=== PATIENT | female | born 1945 | race Hispanic/Latino ===

== ENCOUNTER → 2019-12-30 | Outpatient (CLI) | payer OTHER, MEDICARE ==
[~2019-12-30] MED LIST: ACET-2113 PO; AEC81 PO; ASCO60LO10 PO; CALC-322 PO; GINK120C PO; OMEG1CAP6 PO
== END | disposition home or self-care (01) ==
LOC: SHCH 12:30
PROVIDERS: ATTEND Internal Medicine Cardiovascular Disease
DX: I10 Essential (primary) hypertension (principal); E78.5 Hyperlipidemia, unspecified
CPT/HCPCS: 93306; 93356

== ENCOUNTER → 2019-12-30 | Outpatient (CLI) | payer OTHER | END | disposition home or self-care (01) | LOC: OIH 12:28 | PROVIDERS: ATTEND Internal Medicine Cardiovascular Disease | DX: Z13.6 Encounter for screening for cardiovascular disorders (principal) | CPT/HCPCS: 75571 ==

== ENCOUNTER 2020-01-03 12:59 | Inpatient (IN) | payer OTHER, MEDICARE ==
[~2020-01-03] VITALS: Ht 167.6 cm; Wt 101.2 kg
[2020-01-03 13:16] LABS: BASOPHILS % (AUTO) 0.5 % (0.0-5.0); EOSINOPHILS % (AUTO) 1.1 % (0.0-8.0); HEMATOCRIT 42.8 % (36-48); LYMPHOCYTES % (AUTO) 20.6 % (21.0-51.0); MEAN CORPUSCULAR HEMOGLOBIN 28.8 pg (27.0-33.0); MEAN CORPUSCULAR VOLUME 89.9 fL (79-99); NEUTROPHILS % (AUTO) 69.7 % (40.0-77.0); PLATELET COUNT (AUTO) 240 K/uL (130-400); RED BLOOD CELL COUNT(AUTO) 4.76 MIL/uL (4.00-5.50); RED CELL DISTRIBUTION WIDTH 12.5 % (11.0-15.5); WHITE BLOOD COUNT (AUTO) 7.3 K/uL (4.8-10.8)
[2020-01-03 13:27] LABS: ALBUMIN 3.9 g/dL (3.5-5.0); BILIRUBIN,TOTAL 0.6 mg/dL (0.2-1.0); CREATININE 0.6 mg/dL (0.5-1.5); POTASSIUM 4.3 mmol/L (3.5-5.1); TOTAL PROTEIN, SERUM 7.8 g/dL (6.0-8.3)
[2020-01-03] MEDS ORDERED: SODIUM CHLORIDE 0.9% 1000ML 1,000 ML IV ONE (13:27)
[2020-01-03 13:29] LABS: INR 1.02 (0.85-1.15); PARTIAL THROMBOPLASTIN TIME 29.7 SEC (26.3-35.5)
[2020-01-03 14:01] LABS: APPEARANCE,URINE Clear (CLEAR); BILIRUBIN,URINE Negative (NEGATIVE); COLOR,URINE Yellow (YELLOW); GLUCOSE, URINE (UA) Negative (NEGATIVE); KETONES,URINE Negative (NEGATIVE); LEUKOCYTE ESTERASE ,URINE Moderate (NEGATIVE); NITRATE,URINE Negative (NEGATIVE); OCCULT BLOOD,URINE Negative (NEGATIVE); PROTEIN,URINE Negative (NEGATIVE); UROBILINOGEN,URINE 0.2 mg/dL (0.2-1.0)
[2020-01-03 14:11] LABS: BACTERIA,URINE Many /HPF (None Seen); RBC,URINE 0-1 /HPF (0-1); SQUAMOUS EPITHELIAL CELL,UR Rare /HPF (0-2)
[2020-01-03] MEDS ORDERED: CEFTRIAXONE SODIUM 1 GM ONE (14:43)
[2020-01-03] MEDS ORDERED: SODIUM CHLORIDE 0.9% 50 ML IV ONE (14:43)
[2020-01-03] MEDS ORDERED: ACETAMINOPHEN 325 MG TAB PO PRN (18:30)
[2020-01-03] MEDS ORDERED: ONDANSETRON HCL 4 MG/2 ML VIAL IV PRN (18:30)
[2020-01-03] MEDS ORDERED: NITROGLYCERIN 0.4 MG SL TAB SL PRN (18:30)
[2020-01-03] MEDS: FAMOTIDINE 20MG TAB 20 MG TAB PO SCH (21:00)
[2020-01-03] MEDS ORDERED: FAMOTIDINE/PF 20 MG/2 ML VIAL IV ONE (21:22)
[2020-01-03] MEDS ORDERED: HYDROCODONE/ACETAMINOPHEN 10/325 MG TAB ONE (22:33)
[2020-01-04 04:54] LABS: BASOPHILS % (AUTO) 0.6 % (0.0-5.0); EOSINOPHILS % (AUTO) 2.5 % (0.0-8.0); HEMATOCRIT 37.8 % (36-48); LYMPHOCYTES % (AUTO) 27.7 % (21.0-51.0); MEAN CORPUSCULAR HEMOGLOBIN 29.5 pg (27.0-33.0); MEAN CORPUSCULAR HGB CONC 32.5 g/dL (32.0-36.0); MEAN CORPUSCULAR VOLUME 90.6 fL (79-99); MONOCYTES % (AUTO) 9.2 % (3.0-13.0); NEUTROPHILS % (AUTO) 59.9 % (40.0-77.0); PLATELET COUNT (AUTO) 197 K/uL (130-400); RED BLOOD CELL COUNT(AUTO) 4.17 MIL/uL (4.00-5.50); RED CELL DISTRIBUTION WIDTH 12.6 % (11.0-15.5); WHITE BLOOD COUNT (AUTO) 6.8 K/uL (4.8-10.8)
[2020-01-04 05:07] LABS: ALBUMIN 3.1 g/dL (3.5-5.0); BILIRUBIN,TOTAL 0.5 mg/dL (0.2-1.0); CREATININE 0.6 mg/dL (0.5-1.5); POTASSIUM 4.6 mmol/L (3.5-5.1); TOTAL PROTEIN, SERUM 6.6 g/dL (6.0-8.3)
[2020-01-04] MEDS ORDERED: FAMOTIDINE 20MG TAB 20 MG TAB ONE (08:08)
[2020-01-04] MEDS: FAMOTIDINE 20MG TAB 20 MG TAB PO SCH ×2 (09:00→21:14)
[2020-01-04] MEDS: CEFTRIAXONE SODIUM 1 GM IVP SCH (09:00)
[2020-01-04] MEDS ORDERED: SODIUM CHLORIDE 0.9% 500ML 500 ML IV ONE (11:07)
[2020-01-04] MEDS: INSULIN HUMULIN R 100 UNIT/ML 3ML SQ SCH ×3 (11:30→21:00)
[2020-01-04 20:16] VITALS: BP 123/64
[2020-01-04] MEDS: LISINOPRIL 10 MG TABLET PO SCH (21:00)
[2020-01-05] VITALS (9 sets, daily range): BP systolic 99–125; BP diastolic 42–68
[2020-01-05] MEDS ORDERED: DEXTROSE 50%-WATER 50 ML DISP.SYRIN IV ONE (05:10)
[2020-01-05 05:27] LABS: BASOPHILS % (AUTO) 0.7 % (0.0-5.0); EOSINOPHILS % (AUTO) 2.6 % (0.0-8.0); HEMATOCRIT 36.9 % (36-48); LYMPHOCYTES % (AUTO) 29.3 % (21.0-51.0); MEAN CORPUSCULAR HEMOGLOBIN 28.6 pg (27.0-33.0); MEAN CORPUSCULAR HGB CONC 31.7 g/dL (32.0-36.0); MEAN CORPUSCULAR VOLUME 90.2 fL (79-99); NEUTROPHILS % (AUTO) 58.2 % (40.0-77.0); PLATELET COUNT (AUTO) 205 K/uL (130-400); RED BLOOD CELL COUNT(AUTO) 4.09 MIL/uL (4.00-5.50); RED CELL DISTRIBUTION WIDTH 12.5 % (11.0-15.5); WHITE BLOOD COUNT (AUTO) 5.9 K/uL (4.8-10.8)
[2020-01-05 05:49] LABS: BILIRUBIN,TOTAL 0.4 mg/dL (0.2-1.0); CREATININE 0.6 mg/dL (0.5-1.5); POTASSIUM 4.2 mmol/L (3.5-5.1); TOTAL PROTEIN, SERUM 6.5 g/dL (6.0-8.3)
[2020-01-05 05:50] LABS: ALBUMIN 2.9 g/dL (3.5-5.0)
[2020-01-05] MEDS: INSULIN HUMULIN R 100 UNIT/ML 3ML SQ SCH (07:04)
[2020-01-05 07:42] LABS: HEMOGLOBIN A1C 5.9 % (4.0-6.0)
[2020-01-05] MEDS: CEFTRIAXONE SODIUM 1 GM IVP SCH (08:47)
[2020-01-05] MEDS: ENOXAPARIN SODIUM 40 MG/0.4 ML SYRINGE SQ SCH (08:49)
[2020-01-05] MEDS: ASPIRIN 81MG TAB.CHEW PO SCH (08:49)
[2020-01-05] MEDS: FAMOTIDINE 20MG TAB 20 MG TAB PO SCH ×2 (08:49→21:13)
[2020-01-05] MEDS: LISINOPRIL 10 MG TABLET PO SCH ×2 (08:50→21:14)
[2020-01-05] MEDS ORDERED: ATORVASTATIN CALCIUM 20 MG TABLET PO SCH (09:00)
[2020-01-05] MEDS: POLYETHYLENE GLYCOL 3350 17 GM POWD.PACK PO SCH (17:13)
[2020-01-06 03:53] VITALS: BP 102/44
[2020-01-06 04:02] LABS: BASOPHILS % (AUTO) 0.5 % (0.0-5.0); EOSINOPHILS % (AUTO) 2.5 % (0.0-8.0); HEMATOCRIT 36.6 % (36-48); LYMPHOCYTES % (AUTO) 32.2 % (21.0-51.0); MEAN CORPUSCULAR HEMOGLOBIN 29.1 pg (27.0-33.0); MEAN CORPUSCULAR HGB CONC 32.2 g/dL (32.0-36.0); MEAN CORPUSCULAR VOLUME 90.4 fL (79-99); MONOCYTES % (AUTO) 9.3 % (3.0-13.0); NEUTROPHILS % (AUTO) 55.2 % (40.0-77.0); PLATELET COUNT (AUTO) 212 K/uL (130-400); RED BLOOD CELL COUNT(AUTO) 4.05 MIL/uL (4.00-5.50); RED CELL DISTRIBUTION WIDTH 12.5 % (11.0-15.5); WHITE BLOOD COUNT (AUTO) 6.4 K/uL (4.8-10.8)
[2020-01-06 04:18] LABS: BILIRUBIN,TOTAL 0.4 mg/dL (0.2-1.0); CREATININE 0.6 mg/dL (0.5-1.5); POTASSIUM 3.9 mmol/L (3.5-5.1); TOTAL PROTEIN, SERUM 6.5 g/dL (6.0-8.3)
[2020-01-06 07:30] VITALS: BP 124/45
[2020-01-06] MEDS: FAMOTIDINE 20MG TAB 20 MG TAB PO SCH (09:24)
[2020-01-06] MEDS: ASPIRIN 81MG TAB.CHEW PO SCH (09:24)
[2020-01-06] MEDS: LISINOPRIL 10 MG TABLET PO SCH (09:25)
[2020-01-06] MEDS: CEFTRIAXONE SODIUM 1 GM IVP SCH (09:25)
[2020-01-06] MEDS: POLYETHYLENE GLYCOL 3350 17 GM POWD.PACK PO SCH (09:25)
[2020-01-06] MEDS: ENOXAPARIN SODIUM 40 MG/0.4 ML SYRINGE SQ SCH (09:49)
[2020-01-06 11:00] VITALS: BP 95/94
[2020-01-06] MEDS ORDERED: MECLIZINE HCL 25 MG TABLET PO PRN (14:15)
[2020-01-06 16:00] VITALS: BP 149/53
== END 2020-01-06 17:25 | disposition home or self-care (01) | DRG 880 ==
LOC: EDH 12:59 → EDHIP 18:24 → 3BH 01-04 16:33
PROVIDERS: ADMIT Hospitalist; ATTEND Hospitalist
DX: F41.9 Anxiety disorder, unspecified (principal); N39.0 Urinary tract infection, site not specified; E78.5 Hyperlipidemia, unspecified; I10 Essential (primary) hypertension; R73.03 Prediabetes; E66.9 Obesity, unspecified; F32.9 Major depressive disorder, single episode, unspecified; M19.90 Unspecified osteoarthritis, unspecified site; Z83.3 Family history of diabetes mellitus; Z82.49 Family history of ischemic heart disease and other diseases of the circulatory system; Z90.49 Acquired absence of other specified parts of digestive tract; Z80.0 Family history of malignant neoplasm of digestive organs; Z80.8 Family history of malignant neoplasm of other organs or systems; Z68.36 Body mass index [BMI] 36.0-36.9, adult; T46.4X5A Adverse effect of angiotensin-converting-enzyme inhibitors, initial encounter; R42 Dizziness and giddiness
CPT/HCPCS: 36415; 70450; 70544; 70547; 70551; 71045; 80053; 81001; 82550; 82948; 83036; 83880; 84484; 85025; 85610; 85730; 87077; 87088; 87186; 93005; G0378; J0696; J1650; J2405; J3490; J7030; J7040; J7070

== ENCOUNTER → 2020-02-07 | Outpatient (CLI) | payer OTHER, MEDICARE ==
[~2020-02-07] MED LIST changes: -ACET-2113 PO; -AEC81 PO; -ASCO60LO10 PO; -CALC-322 PO; -GINK120C PO; -OMEG1CAP6 PO; +REGADENOSON 0.4 MG/5 ML PF SYG IVP SCH
== END | disposition home or self-care (01) ==
LOC: SHCH 07:41
PROVIDERS: ATTEND Internal Medicine Cardiovascular Disease
DX: I25.10 Atherosclerotic heart disease of native coronary artery without angina pectoris (principal); E78.5 Hyperlipidemia, unspecified
CPT/HCPCS: 78452; 93017; 96374; A9500 ×2; J2785

== ENCOUNTER 2020-11-16 04:13 | Observation (INO) | payer OTHER, MEDICARE ==
[~2020-11-16] VITALS: Ht 160 cm; Wt 102.9 kg
[2020-11-16] MEDS ORDERED: ONDANSETRON 4MG INJ IVP ONE (05:00)
[2020-11-16] MEDS ORDERED: MORPHINE 4 MG SYG IV ONE ×2 (05:00→08:30)
[2020-11-16] MEDS ORDERED: MORPHINE 4 MG SYG ONE (05:06)
[2020-11-16] MEDS ORDERED: ONDANSETRON 4MG INJ ONE (05:06)
[2020-11-16 05:20] LABS: BASOPHILS % (AUTO) 0.4 % (0.0-5.0); HEMATOCRIT 35.6 % (36-48); LYMPHOCYTES % (AUTO) 11.9 % (21.0-51.0); MEAN CORPUSCULAR HEMOGLOBIN 25.9 pg (27.0-33.0); MEAN CORPUSCULAR HGB CONC 31.5 g/dL (32.0-36.0); MEAN CORPUSCULAR VOLUME 82.2 fL (79-99); MONOCYTES % (AUTO) 8.6 % (3.0-13.0); NEUTROPHILS % (AUTO) 77.7 % (40.0-77.0); PLATELET COUNT (AUTO) 332 K/uL (130-400); RED BLOOD CELL COUNT(AUTO) 4.33 MIL/uL (4.00-5.50); RED CELL DISTRIBUTION WIDTH 13.5 % (11.0-15.5)
[2020-11-16 05:27] LABS: BILIRUBIN,URINE Negative (NEGATIVE); COLOR,URINE Orange (YELLOW); GLUCOSE, URINE (UA) Negative (NEGATIVE); KETONES,URINE Negative (NEGATIVE); OCCULT BLOOD,URINE Large (NEGATIVE); PH,URINE 6.5 (5.0-8.0); PROTEIN,URINE POS 2+ mg/dL (NEGATIVE)
[2020-11-16 05:28] LABS: LEUKOCYTE ESTERASE ,URINE Large (NEGATIVE); NITRATE,URINE Positive (NEGATIVE)
[2020-11-16 05:28] LABS: INR 1.08 (0.85-1.15); PROTHROMBIN TIME 11.7 SEC (9.6-11.6)
[2020-11-16 05:29] LABS: APPEARANCE,URINE CLOUDY (CLEAR)
[2020-11-16 05:34] LABS: ALBUMIN 3.2 g/dL (3.5-5.0); BILIRUBIN,TOTAL 0.6 mg/dL (0.2-1.0); CREATININE 0.7 mg/dL (0.5-1.5); TOTAL PROTEIN, SERUM 8.1 g/dL (6.0-8.3)
[2020-11-16 05:40] LABS: BACTERIA,URINE Many /HPF (None Seen); RBC,URINE >100 /HPF (0-1)
[2020-11-16] MEDS ORDERED: ATOR10 PO (06:07)
[2020-11-16] MEDS ORDERED: FISH1CAP50 PO (06:07)
[2020-11-16] MEDS ORDERED: GLUC-148 PO (06:08)
[2020-11-16] MEDS ORDERED: [UNRECOGNIZED DRUG - OTHER] (06:12)
[2020-11-16] MEDS ORDERED: GINK120C PO (06:14)
[2020-11-16] MEDS ORDERED: LISI10TA24 PO (06:15)
[2020-11-16] MEDS ORDERED: AEC81 PO (06:16)
[2020-11-16] MEDS ORDERED: VITAMIN D (06:21)
[2020-11-16] MEDS ORDERED: CALC-1125 PO (06:21)
[2020-11-16] MEDS ORDERED: FERR-82 PO (06:22)
[2020-11-16] MEDS ORDERED: LACTULOSE 20 GM/30 ML UDCUP PO PRN (08:30)
[2020-11-16] MEDS: CEFTRIAXONE 1G VIAL IVP SCH (08:30)
[2020-11-16] MEDS ORDERED: ACETAMINOPHEN 325 MG TAB PO PRN ×2 (08:30)
[2020-11-16] MEDS ORDERED: PROCHLORPERAZINE EDISYLATE 5 MG/ML 2 ML VIAL IVP ONE (08:30)
[2020-11-16] MEDS: FAMOTIDINE 20MG TAB PO SCH ×2 (09:00→21:31)
[2020-11-16] MEDS: ENOXAPARIN SODIUM 40 MG/0.4 ML SYRINGE SQ SCH (09:00)
[2020-11-16] MEDS: ONDANSETRON 4MG INJ IV PRN (10:07)
[2020-11-16] MEDS: MORPHINE 2 MG SYG IV PRN (16:36)
[2020-11-16] MEDS: ATORVASTATIN 20 MG TABLET PO SCH (21:31)
[2020-11-17] MEDS: ONDANSETRON 4MG INJ IV PRN (04:04)
[2020-11-17] MEDS: MORPHINE 2 MG SYG IV PRN ×2 (04:04→13:07)
[2020-11-17 04:34] VITALS: BP 128/63
[2020-11-17 05:19] LABS: BASOPHILS % (AUTO) 0.4 % (0.0-5.0); EOSINOPHILS % (AUTO) 0.8 % (0.0-8.0); HEMATOCRIT 34.3 % (36-48); LYMPHOCYTES % (AUTO) 12.8 % (21.0-51.0); MEAN CORPUSCULAR HEMOGLOBIN 25.7 pg (27.0-33.0); MEAN CORPUSCULAR HGB CONC 30.9 g/dL (32.0-36.0); MEAN CORPUSCULAR VOLUME 83.3 fL (79-99); MONOCYTES % (AUTO) 8.9 % (3.0-13.0); NEUTROPHILS % (AUTO) 76.7 % (40.0-77.0); PLATELET COUNT (AUTO) 318 K/uL (130-400); RED BLOOD CELL COUNT(AUTO) 4.12 MIL/uL (4.00-5.50); RED CELL DISTRIBUTION WIDTH 13.6 % (11.0-15.5); WHITE BLOOD COUNT (AUTO) 10.3 K/uL (4.8-10.8)
[2020-11-17 05:36] LABS: CREATININE 1.2 mg/dL (0.5-1.5); POTASSIUM 4.9 mmol/L (3.5-5.1)
[2020-11-17 05:37] LABS: PLATELET MORPHOLOGY LARGE PLTS PRESENT
[2020-11-17 08:28] VITALS: BP 135/58
[2020-11-17] MEDS: ENOXAPARIN SODIUM 40 MG/0.4 ML SYRINGE SQ SCH (09:00)
[2020-11-17] MEDS: LISINOPRIL 10 MG TABLET PO SCH (09:51)
[2020-11-17] MEDS: FAMOTIDINE 20MG TAB PO SCH ×2 (09:51→19:38)
[2020-11-17] MEDS: ASPIRIN 81 MG EC TAB PO SCH (09:51)
[2020-11-17] MEDS: CEFTRIAXONE 1G VIAL IVP SCH (09:56)
[2020-11-17 11:57] VITALS: BP 101/34
[2020-11-17 16:33] VITALS: BP 119/49
[2020-11-17] MEDS: ATORVASTATIN 20 MG TABLET PO SCH (19:38)
[2020-11-17 20:31] VITALS: BP 159/71
[2020-11-17 23:34] VITALS: BP 114/48
[2020-11-18 03:33] VITALS: BP 137/60
[2020-11-18] MEDS: MORPHINE 2 MG SYG IV PRN ×2 (03:42→10:24)
[2020-11-18] MEDS: ONDANSETRON 4MG INJ IV PRN (05:19)
[2020-11-18 06:36] LABS: HEMATOCRIT 30.2 % (36-48); MEAN CORPUSCULAR HEMOGLOBIN 25.9 pg (27.0-33.0); MEAN CORPUSCULAR HGB CONC 30.8 g/dL (32.0-36.0); MEAN CORPUSCULAR VOLUME 84.1 fL (79-99); RED BLOOD CELL COUNT(AUTO) 3.59 MIL/uL (4.00-5.50); RED CELL DISTRIBUTION WIDTH 13.5 % (11.0-15.5); WHITE BLOOD COUNT (AUTO) 8.1 K/uL (4.8-10.8)
[2020-11-18] MEDS: CEFTRIAXONE 1G VIAL IVP SCH (08:13)
[2020-11-18 08:14] VITALS: BP 160/59
[2020-11-18] MEDS: LISINOPRIL 10 MG TABLET PO SCH (08:32)
[2020-11-18] MEDS: ASPIRIN 81 MG EC TAB PO SCH ×2 (08:32→08:42)
[2020-11-18] MEDS: FAMOTIDINE 20MG TAB PO SCH (08:33)
[2020-11-18] MEDS: ENOXAPARIN SODIUM 40 MG/0.4 ML SYRINGE SQ SCH (08:42)
[2020-11-18] MEDS ORDERED: TRAM50TA4 PO (08:54)
[2020-11-18] MEDS ORDERED: DICY10CA13 PO (08:54)
[2020-11-18] MEDS ORDERED: TRAMADOL HCL 50 MG TABLET PO PRN (11:30)
[2020-11-18] MEDS ORDERED: DICYCLOMINE HCL 20 MG TAB PO PRN (11:30)
[2020-11-18] MEDS ORDERED: LIDOCAINE 5% TOPICAL PATCH TP ONE (13:50)
[2020-11-18] MEDS ORDERED: LIDOCAINE 5% TOPICAL PATCH TP SCH (13:50)
[2020-11-18 17:00] VITALS: BP 141/63
== END 2020-11-18 17:45 | disposition home or self-care (01) ==
LOC: EDH 04:13 → EDHIP 08:10 → 3DH 11-17 03:53
PROVIDERS: ADMIT Hospitalist; ATTEND Hospitalist
DX: D49.512 Neoplasm of unspecified behavior of left kidney (principal); D49.511 Neoplasm of unspecified behavior of right kidney; N39.0 Urinary tract infection, site not specified; R31.9 Hematuria, unspecified; I10 Essential (primary) hypertension; E78.5 Hyperlipidemia, unspecified; E78.00 Pure hypercholesterolemia, unspecified; N28.89 Other specified disorders of kidney and ureter; F41.9 Anxiety disorder, unspecified; M19.90 Unspecified osteoarthritis, unspecified site; Z79.82 Long term (current) use of aspirin; Z79.899 Other long term (current) drug therapy
CPT/HCPCS: 36415 ×3; 74176; 80048; 80053; 81001; 84484; 85025 ×2; 85027; 85610; 87077; 87088; 87186; 96372; 96374; 96375; 96376 ×3; 99284; G0378 ×57; J0696 ×3; J1650 ×2; J2270; J2405 ×4

== ENCOUNTER 2021-09-26 11:02 | Inpatient (IN) | payer OTHER, MEDICARE ==
[~2021-09-26] VITALS: Ht 167.6 cm; Wt 98.0 kg
[~2021-09-26 11:02] MED LIST changes: +AEC81 PO; +ATOR10 PO; +CALC-1125 PO; +DICY10CA13 PO; +FISH1CAP50 PO; +LISI10TA24 PO; -REGADENOSON 0.4 MG/5 ML PF SYG IVP SCH; +TRAM50TA4 PO
[2021-09-26] MEDS ORDERED: 0.9% NACL 500ML IV.SOLN 500 ML IV ONE (11:30)
[2021-09-26 11:34] LABS: EOSINOPHILS % (AUTO) 2.2 % (0.0-8.0); HEMATOCRIT 37.8 % (36-48); LYMPHOCYTES % (AUTO) 14.3 % (21.0-51.0); MEAN CORPUSCULAR HEMOGLOBIN 29.6 pg (27.0-33.0); MEAN CORPUSCULAR HGB CONC 32.5 g/dL (32.0-36.0); MEAN CORPUSCULAR VOLUME 91.1 fL (79-99); MONOCYTES % (AUTO) 14.1 % (3.0-13.0); NEUTROPHILS % (AUTO) 68.1 % (40.0-77.0); PLATELET COUNT (AUTO) 191 K/uL (130-400); RED BLOOD CELL COUNT(AUTO) 4.15 MIL/uL (4.00-5.50); RED CELL DISTRIBUTION WIDTH 17.1 % (11.0-15.5); WHITE BLOOD COUNT (AUTO) 5.9 K/uL (4.8-10.8)
[2021-09-26 12:08] LABS: ALBUMIN 2.7 g/dL (3.5-5.0); CREATININE 0.9 mg/dL (0.5-1.5); POTASSIUM 3.9 mmol/L (3.5-5.1)
[2021-09-26] MEDS ORDERED: LOSA25TA41 PO (13:31)
[2021-09-26 14:42] LABS: APPEARANCE,URINE CLEAR (CLEAR); BILIRUBIN,URINE MODERATE (NEGATIVE); COLOR,URINE YELLOW (YELLOW); GLUCOSE, URINE (UA) NEGATIVE (NEGATIVE); KETONES,URINE NEGATIVE (NEGATIVE); LEUKOCYTE ESTERASE ,URINE MODERATE (NEGATIVE); NITRATE,URINE POSITIVE (NEGATIVE); OCCULT BLOOD,URINE NEGATIVE (NEGATIVE); PH,URINE 7.5 (5.0-8.0); PROTEIN,URINE NEGATIVE (NEGATIVE); UROBILINOGEN,URINE >=8.0 mg/dL (0.2-1.0)
[2021-09-26 14:49] LABS: RBC,URINE 0-1 /HPF (0-1)
[2021-09-26 14:50] LABS: BACTERIA,URINE Moderate /HPF (None Seen); SQUAMOUS EPITHELIAL CELL,UR Few /HPF (0-2)
[2021-09-26 15:22] LABS: ACETAMINOPHEN < 1 mcg/mL (10-30); SALICYLATE < 2.8 mg/dL (2.8-20.0)
[2021-09-26 15:27] LABS: PROTHROMBIN TIME 10.9 SEC (9.6-11.6)
[2021-09-26 15:29] LABS: PARTIAL THROMBOPLASTIN TIME 29.6 SEC (26.3-35.5)
[2021-09-26] MEDS: SOLU-MEDROL 40MG VIAL IVP SCH ×2 (15:30→22:05)
[2021-09-26] MEDS ORDERED: CLONIDINE HCL 0.1 MG TABLET PO PRN (16:30)
[2021-09-26] MEDS ORDERED: ONDANSETRON 4MG INJ IVP PRN (16:30)
[2021-09-26 16:47] LABS: CREATININE 0.9 mg/dL (0.5-1.5); POTASSIUM 3.9 mmol/L (3.5-5.1)
[2021-09-26] MEDS ORDERED: GLUCAGON 1MG KIT 1 MG ML IM PRN (17:00)
[2021-09-26] MEDS ORDERED: DEXTROSE 50%-WATER 50 ML DISP.SYRIN IV PRN (17:00)
[2021-09-26 17:07] LABS: ALBUMIN 2.5 g/dL (3.5-5.0); BILIRUBIN,DIRECT 6.6 mg/dL (0.0-0.3)
[2021-09-26] MEDS: DEXTROSE 5%-LACTATED RINGERS 1,000 ML IV SCH (17:56)
[2021-09-26] MEDS: INSULIN HUMULIN R 100 UNIT/ML 3ML SQ SCH (18:00)
[2021-09-26] MEDS: LACTATED RINGERS 1000ML 1,000 ML IV SCH (18:00)
[2021-09-26 20:48] LABS: HEPATITIS A IGM ANTIBODY Non-Reactive (Nonreactive); HEPATITIS B CORE IGM ANTIBODY Non-Reactive (Negative); HEPATITIS B SURFACE ANTIGEN Non-Reactive (Nonreactive); HEPATITIS C ANTIBODY Non-Reactive (Nonreactive)
[2021-09-27] VITALS (15 sets, daily range): BP systolic 93–149; BP diastolic 42–69
[2021-09-27] MEDS: LACTATED RINGERS 1000ML 1,000 ML IV SCH ×2 (00:12→03:23)
[2021-09-27 05:40] LABS: BASOPHILS % (AUTO) 0.3 % (0.0-5.0); HEMATOCRIT 36.3 % (36-48); LYMPHOCYTES % (AUTO) 11.4 % (21.0-51.0); MEAN CORPUSCULAR HEMOGLOBIN 29.2 pg (27.0-33.0); MEAN CORPUSCULAR HGB CONC 31.7 g/dL (32.0-36.0); MEAN CORPUSCULAR VOLUME 92.1 fL (79-99); NEUTROPHILS % (AUTO) 85.8 % (40.0-77.0); PLATELET COUNT (AUTO) 189 K/uL (130-400); RED BLOOD CELL COUNT(AUTO) 3.94 MIL/uL (4.00-5.50); RED CELL DISTRIBUTION WIDTH 16.8 % (11.0-15.5); WHITE BLOOD COUNT (AUTO) 5.9 K/uL (4.8-10.8)
[2021-09-27 05:56] LABS: INR 1.05 (0.85-1.15); PROTHROMBIN TIME 11.4 SEC (9.6-11.6)
[2021-09-27 05:57] LABS: PARTIAL THROMBOPLASTIN TIME 30.4 SEC (26.3-35.5)
[2021-09-27] MEDS: INSULIN HUMULIN R 100 UNIT/ML 3ML SQ SCH ×5 (06:00→21:00)
[2021-09-27 06:17] LABS: ALBUMIN 2.3 g/dL (3.5-5.0); BILIRUBIN,DIRECT 6.6 mg/dL (0.0-0.3); POTASSIUM 4.5 mmol/L (3.5-5.1); TOTAL PROTEIN, SERUM 6.2 g/dL (6.0-8.3)
[2021-09-27] MEDS: DEXTROSE 5%-LACTATED RINGERS 1,000 ML IV SCH ×2 (06:37→19:10)
[2021-09-27] MEDS: SOLU-MEDROL 40MG VIAL IVP SCH ×3 (07:53→21:10)
[2021-09-27] MEDS: PANTOPRAZOLE 40 MG/VIAL IVP SCH (07:54)
[2021-09-27] MEDS: ENOXAPARIN SODIUM 40 MG/0.4 ML SYRINGE SQ SCH (07:54)
[2021-09-27] MEDS ORDERED: LACTULOSE 20 GM/30 ML UDCUP PO ONE (09:30)
[2021-09-27] MEDS ORDERED: CEFTRIAXONE 1G VIAL IVP SCH (18:00)
[2021-09-27] MEDS: LACTULOSE 20 GM/30 ML UDCUP PO SCH (21:00)
[2021-09-27] MEDS: CEFTRIAXONE 1G VIAL IVP SCH (21:11)
[2021-09-28 00:08] VITALS: BP 128/63
[2021-09-28] MEDS: SOLU-MEDROL 40MG VIAL IVP SCH ×4 (02:29→21:46)
[2021-09-28 03:46] LABS: HEMATOCRIT 33.1 % (36-48); MEAN CORPUSCULAR HEMOGLOBIN 29.6 pg (27.0-33.0); MEAN CORPUSCULAR HGB CONC 32.9 g/dL (32.0-36.0); MEAN CORPUSCULAR VOLUME 89.9 fL (79-99); RED BLOOD CELL COUNT(AUTO) 3.68 MIL/uL (4.00-5.50); WHITE BLOOD COUNT (AUTO) 16.1 K/uL (4.8-10.8)
[2021-09-28 03:57] LABS: INR 1.05 (0.85-1.15); PROTHROMBIN TIME 11.4 SEC (9.6-11.6)
[2021-09-28 03:58] LABS: PARTIAL THROMBOPLASTIN TIME 30.2 SEC (26.3-35.5)
[2021-09-28 04:29] LABS: ALBUMIN 2.2 g/dL (3.5-5.0); CREATININE 0.9 mg/dL (0.5-1.5); POTASSIUM 4.5 mmol/L (3.5-5.1); TOTAL PROTEIN, SERUM 5.9 g/dL (6.0-8.3)
[2021-09-28] MEDS: DEXTROSE 5%-LACTATED RINGERS 1,000 ML IV SCH (05:48)
[2021-09-28] MEDS: INSULIN HUMULIN R 100 UNIT/ML 3ML SQ SCH ×4 (06:22→21:00)
[2021-09-28] MEDS ORDERED: LACTULOSE 20 GM/30 ML UDCUP PO SCH (09:00)
[2021-09-28] MEDS: LACTULOSE 20 GM/30 ML UDCUP PO SCH ×3 (09:00→21:00)
[2021-09-28] MEDS: PANTOPRAZOLE 40 MG/VIAL IVP SCH (09:21)
[2021-09-28] MEDS: ENOXAPARIN SODIUM 40 MG/0.4 ML SYRINGE SQ SCH (09:21)
[2021-09-28 12:00] VITALS: BP 135/60
[2021-09-28 16:03] VITALS: BP 129/55
[2021-09-28 20:00] VITALS: BP 132/44
[2021-09-28] MEDS: CEFTRIAXONE 1G VIAL IVP SCH (21:45)
[2021-09-29] VITALS: BP_SYST 112; BP_SYST 118; BP_DIAS 50; BP_DIAS 51
[2021-09-29 04:00] VITALS: BP 118/51
[2021-09-29] MEDS: SOLU-MEDROL 40MG VIAL IVP SCH ×2 (04:22→08:19)
[2021-09-29 05:19] LABS: BASOPHILS % (AUTO) 0.1 % (0.0-5.0); HEMATOCRIT 33.5 % (36-48); MEAN CORPUSCULAR HEMOGLOBIN 30.1 pg (27.0-33.0); MEAN CORPUSCULAR HGB CONC 32.8 g/dL (32.0-36.0); MEAN CORPUSCULAR VOLUME 91.8 fL (79-99); MONOCYTES % (AUTO) 2.2 % (3.0-13.0); NEUTROPHILS % (AUTO) 91.2 % (40.0-77.0); PLATELET COUNT (AUTO) 215 K/uL (130-400); RED BLOOD CELL COUNT(AUTO) 3.65 MIL/uL (4.00-5.50); RED CELL DISTRIBUTION WIDTH 17.4 % (11.0-15.5); WHITE BLOOD COUNT (AUTO) 15.6 K/uL (4.8-10.8)
[2021-09-29 05:46] LABS: ALBUMIN 2.3 g/dL (3.5-5.0); CREATININE 1.1 mg/dL (0.5-1.5); POTASSIUM 4.5 mmol/L (3.5-5.1); TOTAL PROTEIN, SERUM 5.9 g/dL (6.0-8.3)
[2021-09-29] MEDS: INSULIN HUMULIN R 100 UNIT/ML 3ML SQ SCH ×2 (05:53→11:53)
[2021-09-29] MEDS: DEXTROSE 5%-LACTATED RINGERS 1,000 ML IV SCH (07:43)
[2021-09-29 08:00] VITALS: BP 113/51
[2021-09-29] MEDS: PANTOPRAZOLE 40 MG/VIAL IVP SCH (08:36)
[2021-09-29] MEDS: ENOXAPARIN SODIUM 40 MG/0.4 ML SYRINGE SQ SCH (08:37)
[2021-09-29] MEDS: LACTULOSE 20 GM/30 ML UDCUP PO SCH (08:37)
[2021-09-29 12:00] VITALS: BP 122/51
[2021-09-29] MEDS ORDERED: PANT40TA54 PO (12:27)
[2021-09-29] MEDS ORDERED: PRED50TA2 PO (12:27)
== END 2021-09-29 14:50 | disposition home or self-care (01) | DRG 442 ==
LOC: EDH 11:02 → EDHIP 16:47 → 2BH 09-27 00:28 → 3CH 09-28 04:24
PROVIDERS: ADMIT Internal Medicine; ATTEND Internal Medicine
DX: K71.10 Toxic liver disease with hepatic necrosis, without coma (principal); B17.9 Acute viral hepatitis, unspecified; D84.9 Immunodeficiency, unspecified; N39.0 Urinary tract infection, site not specified; T50.995A Adverse effect of other drugs, medicaments and biological substances, initial encounter; I10 Essential (primary) hypertension; E11.9 Type 2 diabetes mellitus without complications; E66.9 Obesity, unspecified; E78.00 Pure hypercholesterolemia, unspecified; Z85.528 Personal history of other malignant neoplasm of kidney; Z90.5 Acquired absence of kidney; Z83.3 Family history of diabetes mellitus; Z82.49 Family history of ischemic heart disease and other diseases of the circulatory system; Z80.0 Family history of malignant neoplasm of digestive organs; Y92.89 Other specified places as the place of occurrence of the external cause; Z68.34 Body mass index [BMI] 34.0-34.9, adult
CPT/HCPCS: 36415; 71045; 74176; 76705; 80048; 80053; 80074; 80076; 81001; 82140; 82550; 82948; 83690; 84484; 85025; 85027; 85610; 85730; 87077; 87088; 87186; 93005; C9113; G0378; G0481; J0696; J1650; J1815; J2920; J3490

== ENCOUNTER 2023-05-13 23:27 | Emergency (ER) | payer OTHER, MEDICARE ==
[~2023-05-13] VITALS: Ht 167.6 cm; Wt 99.8 kg
[~2023-05-13 23:27] MED LIST changes: -AEC81 PO; -ATOR10 PO; -CALC-1125 PO; -DICY10CA13 PO; -FISH1CAP50 PO; -LISI10TA24 PO; +LOSA25TA41 PO; +PANT40TA54 PO; +PRED50TA2 PO; -TRAM50TA4 PO
[2023-05-14] MEDS ORDERED: HYDR50CA50 PO (00:54)
[2023-05-14] MEDS: HYDROXYZINE 25 MG TABLET PO ONE (01:27)
[2023-05-14 01:31] VITALS: BP 126/49; PULSE 62; RESP 18; O2SAT 99
== END 2023-05-14 01:40 | disposition home or self-care (01) ==
LOC: EDH 23:27
DX: F41.9 Anxiety disorder, unspecified (principal); I16.0 Hypertensive urgency; I10 Essential (primary) hypertension; Z79.52 Long term (current) use of systemic steroids; Z79.899 Other long term (current) drug therapy